=== PATIENT | female | born 1995 | race Hispanic/Latino ===

== ENCOUNTER 2020-11-21 21:05 | Emergency (ER) | payer SELFPAY ==
[~2020-11-21] VITALS: Ht 167.6 cm; Wt 87.1 kg
[2020-11-22] MEDS ORDERED: MORPHINE SULFATE INJ 4 MG/ML INJ 1ML IM STA (02:39)
[2020-11-22] MEDS ORDERED: ONDANSETRON HCL 4 MG ORAL DISINTEGRATING TAB PO ONE (04:15)
[2020-11-22] MEDS ORDERED: METRONIDAZOLE 500 MG TAB PO ONE (04:15)
[2020-11-22] MEDS ORDERED: AZITHROMYCIN 250 MG TAB PO ONE (04:15)
[2020-11-22 04:46] VITALS: BP 108/88
== END 2020-11-22 05:45 | disposition home or self-care (01) ==
LOC: ER 22:00
DX: T74.21XA Adult sexual abuse, confirmed, initial encounter (principal); T19.2XXA Foreign body in vulva and vagina, initial encounter; Y92.59 Other trade areas as the place of occurrence of the external cause; Z88.6 Allergy status to analgesic agent; Z88.0 Allergy status to penicillin; Z88.8 Allergy status to other drugs, medicaments and biological substances
CPT/HCPCS: 99283; J2270; Q0162